=== PATIENT | male | born 1990 | race Two or more races ===

== ENCOUNTER 2022-07-25 21:06 | Emergency (ER) | payer BC, OTHER ==
[~2022-07-25] VITALS: Ht 172.7 cm; Wt 108.9 kg
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
[2022-07-25] MEDS ORDERED: IBUP-1957 PO (22:40)
--- NOTE | 2022-07-25 23:17 | NUR ---
Patient discharged to home in stable condition. Written and verbal after care instructions given. Patient verbalizes understanding of instruction.
[2022-07-25 23:18] VITALS: BP 142/96
[2022-07-26] MEDS ORDERED: OXYC5CAP18 PO (20:02)
[2022-07-26] MEDS ORDERED: NAPR-1009 PO (20:02)
== END 2022-07-25 23:18 | disposition home or self-care (01) ==
LOC: ER 21:08
DX: M25.562 Pain in left knee (principal); Z79.1 Long term (current) use of non-steroidal anti-inflammatories (NSAID); V89.2XXA Person injured in unspecified motor-vehicle accident, traffic, initial encounter; Y93.89 Activity, other specified; Y92.89 Other specified places as the place of occurrence of the external cause; Y99.8 Other external cause status
CPT/HCPCS: 71045-TC; 73564-TC

== ENCOUNTER 2022-07-26 18:03 | Emergency (ER) | payer BC ==
[~2022-07-26] VITALS: Ht 177.8 cm; Wt 108.9 kg
[~2022-07-26 18:03] MED LIST: IBUP-1957 PO
--- NOTE | 2022-07-26 18:55 | NUR ---
Left Knee pain workup Pt resting comfortably in bed. VSS awaiting for MD orders at this time
[2022-07-26] MEDS ORDERED: KETOROLAC TROMETHAMINE INJ 30 MG/ML VIAL ONE (20:01)
[2022-07-26] MEDS ORDERED: oxyCODONE/APAP (5/325 MG) 1 UDTAB TABLET ONE (20:01)
[2022-07-26] MEDS ORDERED: NAPR-1009 PO (20:02)
[2022-07-26] MEDS ORDERED: OXYC5CAP18 PO (20:02)
[2022-07-26] MEDS: KETOROLAC TROMETHAMINE INJ 60 MG/2 ML VIAL IM ONE (20:05)
[2022-07-26] MEDS: oxyCODONE/APAP (5/325 MG) 1 UDTAB TABLET PO ONE (20:05)
--- NOTE | 2022-07-26 20:14 | NUR ---
Patient discharged to home in stable condition. Written and verbal after care instructions given. Patient verbalizes understanding of instruction.
[2022-07-26 21:55] VITALS: BP 141/88
== END 2022-07-26 21:55 | disposition home or self-care (01) ==
LOC: ER 18:06
DX: S80.02XA Contusion of left knee, initial encounter (principal); Z79.1 Long term (current) use of non-steroidal anti-inflammatories (NSAID); V89.2XXA Person injured in unspecified motor-vehicle accident, traffic, initial encounter; Y93.89 Activity, other specified; Y92.89 Other specified places as the place of occurrence of the external cause; Y99.8 Other external cause status
CPT/HCPCS: 99283; 96372; J1885